=== PATIENT | female | born 1955 | race Caucasian/White ===

== ENCOUNTER 2018-04-04 11:31 | Emergency (ER) | payer MEDICAID, OTHER ==
[~2018-04-04 11:31] MED LIST: CLON2TAB11 PO; DESV100T PO; FLUT1DIS IH; LATA2.5D2 OU; LOMO PO; SIMV20TA6 PO; TRAZ-185 PO; [UNRECOGNIZED DRUG - CODE] PO
[2018-04-04 12:33] LABS: BASOPHILS % (AUTO) 0.3 % (0.0-5.0); EOSINOPHILS % (AUTO) 1.6 % (0.0-8.0); HEMATOCRIT 39.8 % (36-48); LYMPHOCYTES % (AUTO) 41.6 % (21.0-51.0); MEAN CORPUSCULAR HEMOGLOBIN 34.3 pg (27.0-33.0); MEAN CORPUSCULAR VOLUME 98.1 fL (79-99); MONOCYTES % (AUTO) 5.6 % (3.0-13.0); NEUTROPHILS % (AUTO) 50.9 % (40.0-77.0); PLATELET COUNT (AUTO) 299 K/uL (130-400); RED BLOOD CELL COUNT(AUTO) 4.05 MIL/uL (4.00-5.50); RED CELL DISTRIBUTION WIDTH 12.7 % (11.0-15.5); WHITE BLOOD COUNT (AUTO) 8.2 K/uL (4.8-10.8)
[2018-04-04 12:40] LABS: CREATININE 1.1 mg/dL (0.5-1.5)
[2018-04-04 12:45] LABS: ALBUMIN 4.3 g/dL (3.5-5.0); BILIRUBIN,TOTAL 0.4 mg/dL (0.2-1.0); TOTAL PROTEIN, SERUM 7.3 g/dL (6.0-8.3)
[2018-04-04] MEDS ORDERED: IOPAMIDOL-370 75 ML VIAL IV ONE (13:11)
[2018-04-04 13:30] LABS: INR 0.88 (0.85-1.15); PARTIAL THROMBOPLASTIN TIME 23.3 SEC (26.3-35.5); PROTHROMBIN TIME 9.3 SEC (9.6-11.6)
[2018-04-04 14:26] LABS: OCCULT BLOOD STOOL SINGLE ONLY NEGATIVE (NEGATIVE)
[2018-04-04 15:29] LABS: AMPHET/METH SCREEN,URINE NEGATIVE (NEGATIVE); APPEARANCE,URINE Clear (CLEAR); BARBITURATE SCREEN, URINE NEGATIVE (NEGATIVE); BENZODIAZEPINES SCREEN,URINE NEGATIVE (NEGATIVE); BILIRUBIN,URINE Negative (NEGATIVE); CANNABINOID SCREEN,URINE POSITIVE (NEGATIVE); COCAINE SCREEN,URINE NEGATIVE (NEGATIVE); COLOR,URINE Yellow (YELLOW); GLUCOSE, URINE (UA) Negative (NEGATIVE); KETONES,URINE Trace mg/dL (NEGATIVE); LEUKOCYTE ESTERASE ,URINE Negative (NEGATIVE); NITRATE,URINE Negative (NEGATIVE); OCCULT BLOOD,URINE Negative (NEGATIVE); OPIATE SCREEN,URINE NEGATIVE (NEGATIVE); PH,URINE 5.5 (5.0-8.0); PHENCYCLIDINE SCREEN,URINE NEGATIVE (NEGATIVE); PROTEIN,URINE Negative (NEGATIVE); UROBILINOGEN,URINE 0.2 mg/dL (0.2-1.0)
[2018-04-04] MEDS ORDERED: KETOROLAC TROMETHAMINE 30MG/ML ONE (15:58)
== END 2018-04-04 17:02 | disposition home or self-care (01) ==
LOC: EDH 11:31
DX: K60.2 Anal fissure, unspecified (principal); I88.8 Other nonspecific lymphadenitis; R19.7 Diarrhea, unspecified; R79.1 Abnormal coagulation profile; J44.9 Chronic obstructive pulmonary disease, unspecified; E78.00 Pure hypercholesterolemia, unspecified; Z88.8 Allergy status to other drugs, medicaments and biological substances; Z72.0 Tobacco use
CPT/HCPCS: 36415; 74177; 76536; 80053; 80305; 81003; 82270; 84443; 85025; 85610; 85730; 87046; 87177; 87205; 87210; 87324; 87486; 87797; 96374; 99285; J1885; Q9967

== ENCOUNTER 2018-04-21 17:09 | Emergency (ER) | payer OTHER ==
[2018-04-21 18:12] LABS: BASOPHILS % (AUTO) 0.5 % (0.0-5.0); EOSINOPHILS % (AUTO) 1.6 % (0.0-8.0); HEMATOCRIT 36.5 % (36-48); LYMPHOCYTES % (AUTO) 37.2 % (21.0-51.0); MEAN CORPUSCULAR HEMOGLOBIN 35.1 pg (27.0-33.0); MEAN CORPUSCULAR HGB CONC 35.5 g/dL (32.0-36.0); MEAN CORPUSCULAR VOLUME 98.7 fL (79-99); MONOCYTES % (AUTO) 6.9 % (3.0-13.0); NEUTROPHILS % (AUTO) 53.8 % (40.0-77.0); PLATELET COUNT (AUTO) 285 K/uL (130-400); RED CELL DISTRIBUTION WIDTH 13.2 % (11.0-15.5); WHITE BLOOD COUNT (AUTO) 7.6 K/uL (4.8-10.8)
[2018-04-21 18:19] LABS: CARBON DIOXIDE 29 mmol/L (21-32); CHLORIDE 105 mmol/L (101-111); GLOMERULAR FILTR. RATE CALC 60 mL/min (>60); GLUCOSE,RANDOM 89 mg/dL (70-105); POTASSIUM 4.5 mmol/L (3.5-5.1); SODIUM SERUM 144 mmol/L (136-145); UREA NITROGEN, BLOOD 15 mg/dL (7-18)
[2018-04-21 18:23] LABS: ALANINE AMINOTRANSFERASE 37 U/L (12-78); ALBUMIN 3.9 g/dL (3.5-5.0); ASPARTATE AMINOTRANSFERASE 33 U/L (10-37); BILIRUBIN,TOTAL 0.3 mg/dL (0.2-1.0); SALICYLATE 8.7 mg/dL (2.8-20.0); TOTAL PROTEIN, SERUM 6.7 g/dL (6.0-8.3)
[2018-04-21 18:30] LABS: ACETAMINOPHEN < 1 mcg/mL (10-30); ALCOHOL, BLOOD < 3 mg/dL (0-10)
[2018-04-21 19:07] LABS: APPEARANCE,URINE Clear (CLEAR); BILIRUBIN,URINE Negative (NEGATIVE); COLOR,URINE Yellow (YELLOW); GLUCOSE, URINE (UA) Negative (NEGATIVE); KETONES,URINE 15 mg/dL (NEGATIVE); LEUKOCYTE ESTERASE ,URINE Negative (NEGATIVE); NITRATE,URINE Negative (NEGATIVE); OCCULT BLOOD,URINE Negative (NEGATIVE); PROTEIN,URINE Negative (NEGATIVE); UROBILINOGEN,URINE 0.2 mg/dL (0.2-1.0)
[2018-04-21 19:14] LABS: AMPHET/METH SCREEN,URINE NEGATIVE (NEGATIVE); BARBITURATE SCREEN, URINE NEGATIVE (NEGATIVE); BENZODIAZEPINES SCREEN,URINE NEGATIVE (NEGATIVE); CANNABINOID SCREEN,URINE NEGATIVE (NEGATIVE); COCAINE SCREEN,URINE NEGATIVE (NEGATIVE); OPIATE SCREEN,URINE NEGATIVE (NEGATIVE); PHENCYCLIDINE SCREEN,URINE NEGATIVE (NEGATIVE)
== END 2018-04-21 20:30 | disposition left against medical advice (07) ==
LOC: EDH 17:09
DX: R53.1 Weakness (principal); R41.9 Unspecified symptoms and signs involving cognitive functions and awareness; F22 Delusional disorders; F32.9 Major depressive disorder, single episode, unspecified; J44.9 Chronic obstructive pulmonary disease, unspecified; E78.00 Pure hypercholesterolemia, unspecified; Z53.21 Procedure and treatment not carried out due to patient leaving prior to being seen by health care provider; Z88.8 Allergy status to other drugs, medicaments and biological substances; Z87.891 Personal history of nicotine dependence
CPT/HCPCS: 36415; 80053; 80305; 81003; 85025; 93005; 99285; G0480 ×2; G0481